=== PATIENT | male | born 1935 | race Hispanic/Latino ===

== ENCOUNTER 2018-07-07 20:40 | Emergency (ER) | payer MEDICARE ==
[2018-07-07 21:16] LABS: Basophils % (Auto) 0.6 % (0.0-1.8); Eosinophils # (Auto) 0.4 K/mm3 (0.0-0.4); Eosinophils % (Auto) 5.2 % (0.0-4.3); Hemoglobin 14.3 gm/dl (11.8-15.2); Lymphocytes # (Auto) 2.5 K/mm3 (1.2-5.4); Lymphocytes % (Auto) 31.8 % (13.4-35.0); Mean Corpuscular HGB Conc 34 % (32-34); Mean Corpuscular Hemoglobin 31 pg (28-32); Mean Corpuscular Volume 92 fl (84-94); Monocytes # (Auto) 0.8 K/mm3 (0.0-0.8); Monocytes % (Auto) 10.4 % (0.0-7.3); Platelet Count 188 K/mm3 (140-440); Red Blood Count 4.55 M/mm3 (3.65-5.03); Red Cell Distribution Width 13.9 % (13.2-15.2)
[2018-07-07 21:34] LABS: BUN/Creatinine Ratio 20; Blood Urea Nitrogen 12 mg/dL (9-20); Calcium 9.1 mg/dL (8.4-10.2); Hemolysis Index 7
--- NOTE | 2018-07-07 22:30 | Emergency Department Report ---
ED General Adult HPI - General Chief complaint: Recheck/Abnormal Lab/Rx Stated complaint: MEDICAL CLEARANCE Time Seen by Provider: 07/07/18 22:21 Source: patient Mode of arrival: Ambulatory Limitations: No Limitations - History of Present Illness Initial comments: Patient is 83 years old male with history of dementia and arthritis. Patient presented to the ER after he received a call from [employer] stating that his potassium is 6.2. Patient stated that he went there for just a routine check. Patient denied any symptoms at this moment. He denied any chest pain, shortness of breath, nausea or vomiting. No weakness numbness or tingling sensation. - Related Data Allergies Allergy/AdvReac Type Severity Reaction Status Date / Time No Known Allergies Allergy Unverified 07/07/18 20:54 ED Review of Systems ROS: Stated complaint: MEDICAL CLEARANCE Other details as noted in HPI Comment: All other systems reviewed and negative Constitutional: denies: chills, fever Respiratory: denies: cough, orthopnea, shortness of breath, SOB with exertion Cardiovascular: denies: chest pain, palpitations, dyspnea on exertion Gastrointestinal: denies: abdominal pain, nausea, vomiting, diarrhea, constipation, hematemesis, hematochezia Musculoskeletal: denies: back pain Neurological: denies: headache, weakness, numbness, paresthesias, confusion ED Past Medical Hx - Past Medical History Hx Arthritis: Yes Hx Dementia: Yes - Surgical History Past Surgical History?: No - Social History Smoking Status: Never Smoker Substance Use Type: None ED Physical Exam - General Limitations: No Limitations General appearance: alert, in no apparent distress - Head Head exam: Present: atraumatic, normocephalic, normal inspection - Eye Eye exam: Present: normal appearance, PERRL - ENT ENT exam: Present: normal exam, normal orophraynx, mucous membranes moist - Neck Neck exam: Present: normal inspection, full ROM. Absent: tenderness, meningismus, lymphadenopathy, thyromegaly - Respiratory Respiratory exam: Present: normal lung sounds bilaterally. Absent: respiratory distress, wheezes, rales, rhonchi, stridor, chest wall tenderness, accessory muscle use, decreased breath sounds, prolonged expiratory - Cardiovascular Cardiovascular Exam: Present: regular rate, normal rhythm, normal heart sounds - GI/Abdominal GI/Abdominal exam: Present: soft, normal bowel sounds. Absent: distended, tenderness, guarding, rebound, rigid, organomegaly, mass, bruit, pulsatile mass , hernia - Extremities Exam Extremities exam: Present: normal inspection, full ROM, normal capillary refill. Absent: calf tenderness - Back Exam Back exam: Present: normal inspection, full ROM. Absent: tenderness, CVA tenderness (R), CVA tenderness (L), muscle spasm, paraspinal tenderness, vertebral tenderness, rash noted - Neurological Exam Neurological exam: Present: alert, oriented X3, CN II-XII intact, normal gait, reflexes normal - Psychiatric Psychiatric exam: Present: normal mood - Skin Skin exam: Present: warm, intact, normal color ED Course Vital Signs 07/07/18 20:49 Temperature 97.5 F L Pulse Rate 55 L Respiratory 18 Rate Blood Pressure 122/71 O2 Sat by Pulse 99 Oximetry ED Medical Decision Making - Lab Data Result diagrams: 07/07/18 21:07 07/07/18 21:07 - EKG Data -: EKG Interpreted by Vt EKG shows normal: sinus rhythm Rate: bradycardia - EKG Data Interpretation: no acute changes - Medical Decision Making Patient is completely asymptomatic. Potassium level is 4.1 with a creatinine of 0.6 in B Inderjit if 12. I believe this is most likely a false hyperkalemia secondary to hemolysis. Patient will be discharged home to follow up with his primary care physician in the next 2-3 days. Critical care attestation.: If time is entered above; I have spent that time in minutes in the direct care of this critically ill patient, excluding procedure time. ED Disposition Clinical Impression: Abnormal laboratory test result Disposition: DC-01 TO HOME OR SELFCARE Is pt being admited?: No Condition: Stable Instructions: Normal Exam (ED) Additional Instructions: Follow-up with your Primary care physician in the next 2-3 days. Return to the ER if you have any new symptoms.
[2018-07-07 22:32] VITALS: BP 150/59
== END 2018-07-07 22:38 | disposition home or self-care (01) ==
LOC: ED 20:40
DX: R79.9 Abnormal finding of blood chemistry, unspecified (principal); M19.90 Unspecified osteoarthritis, unspecified site; F03.90 Unspecified dementia, unspecified severity, without behavioral disturbance, psychotic disturbance, mood disturbance, and anxiety
CPT/HCPCS: 36415; 80048; 85025; 93005; 93010; 99283

== ENCOUNTER 2021-03-16 17:50 | Inpatient (IN) | payer OTHER, MEDICARE ==
[2021-03-16] MEDS ORDERED: ASPIRIN 325 MG TAB PO ONE (18:04)
[2021-03-16 18:49] LABS: Hematocrit 39.4 % (35.5-45.6); Hemoglobin 13.3 gm/dl (11.8-15.2); Mean Corpuscular HGB Conc 34 % (32-34); Mean Corpuscular Volume 91 fl (84-94); Platelet Count 143 K/mm3 (140-440); Red Blood Count 4.35 M/mm3 (3.65-5.03); Red Cell Distribution Width 13.8 % (13.2-15.2)
[2021-03-16 19:12] LABS: Alanine Aminotransferase 22 units/L (7-56); Albumin 3.7 g/dL (3.9-5); Blood Urea Nitrogen 14 mg/dL (9-20); Calcium 8.4 mg/dL (8.4-10.2); Hemolysis Index 12
[2021-03-16 19:13] LABS: BUN/Creatinine Ratio 23
--- NOTE | 2021-03-16 19:14 | XRay Report ---
CHEST 1 VIEW 1829 INDICATION / CLINICAL INFORMATION: Shortness of breath COMPARISON: None available. FINDINGS: SUPPORT DEVICES: None HEART / MEDIASTINUM: No significant abnormality. LUNGS / PLEURA: Chronic changes are seen. Calcified left hilar node and a calcified granuloma are not ed. Small right calcified granuloma is also seen. No obvious acute infiltrates are noted. No pneumoth orax. ADDITIONAL FINDINGS: No significant additional findings. IMPRESSION: No significant acute abnormality Signer Name: Gerry Zhou MD Signed: 03/16/2021 7:10 PM Workstation Name: [email or web address]
[2021-03-16 19:28] LABS: Total Cells Counted 100
[2021-03-16 19:29] LABS: RBC Morphology Normal
--- NOTE | 2021-03-16 20:06 | Emergency Department Report ---
Blank Doc - Documentation Documentation: 85-year-old male that presents with SOB with generalized weakness. Daughter is present and stated had multiple falls. Unusure of LOC. 1- This initial assessment/diagnostic orders/clinical plan/ treatment(s) is/are subject to change based on pt's health status, clinical progression and re- assessment by fellow clinical providers in the ED. Further treatment and workup at subsequent clinical provers discretion. Patient/guardians urged not to elope from ED as their condition may be serious if not clinically assessed and managed. 2-cardiac workup 3-CT head/xray imagins
--- NOTE | 2021-03-16 20:51 | Cat Scan Report ---
CT head/brain wo con INDICATION / CLINICAL INFORMATION: 85 years Male; headache with falls. TECHNIQUE: Routine CT head without contrast. All CT scans at this location are performed using CT dos e reduction for ALARA by means of automated exposure control. COMPARISON: None. FINDINGS: BRAIN / INTRACRANIAL CONTENTS: No acute hemorrhage, mass effect, midline shift, hydrocephalus, or acu te, large territorial infarct. Moderate cerebral and mild cerebellar atrophy. Moderate degree of hippocampal atrophy suggested bilat erally. There are mild areas of decreased attenuation in the white matter of the cerebral hemispheres. These are nonspecific findings and may be related to microangiopathy (hypertension, diabetes, atheroscleros is), given the patient's age. It might be difficult to evaluate for small areas of ischemia without d iffusion imaging by MRI. CRANIOCERVICAL JUNCTION: No significant abnormality. ORBITS: No significant abnormality of visualized orbits. SINUSES / MASTOIDS: Mild to moderate mucosal thickening in the ethmoids. There is also mild mucosal t hickening in the mastoids. ADDITIONAL FINDINGS: Atherosclerotic disease is seen in the anterior and posterior circulation. IMPRESSION: 1. No focal mass, hemorrhage, hydrocephalus, or acute, large territorial infarct. Signer Name: Nishant Escudero MD, III Signed: 03/16/2021 8:46 PM Workstation Name: [id number]
--- NOTE | 2021-03-16 21:00 | Cat Scan Report ---
. CT cervical spine wo con INDICATION / CLINICAL INFORMATION: 85 years Male; headache with falls. TECHNIQUE: Axial CT images of the cervical spine were obtained. Sagittal and coronal reformatted images were pr oduced. All CT scans at this location are performed using CT dose reduction for ALARA by means of aut omated exposure control. COMPARISON: None available. FINDINGS: POST-SURGICAL CHANGES: Interbody fusion suggested at C5-6 and C6-7. ALIGNMENT: Straightening of the cervical spine noted, which may be related to patient positioning. VERTEBRAE: No signs of fracture. Vertebral bodies are grossly normal in height throughout. There is osseous foraminal narrowing on the right at C3-4, C4-5, and C7-T1 related to facet and uncin ate hypertrophy. Similar findings seen on the left at C3-4, C4-5, C7-T1. Overall, most marked finding s are at C4-5 bilaterally and C3-4 on the left. There is also vacuum phenomenon the foraminal region bilaterally at C7-T1-left greater than right, wh ich may be related to some component of disc disease. INTRAVERTEBRAL DISCS: Disc space narrowing seen at C4-5 and C7-T1. Posterior ligamentum flavum hypert rophy seen at these levels, greater at C3-4. Borderline cord impingement suggested at C3-4 and mild c anal narrowing suggested at C4-5. MRI may be helpful for further evaluation, if clinically warranted. Marked facet hypertrophy is seen on the left at C3-4. Moderate facet hypertrophy seen bilaterally at C4-5. PARASPINAL SOFT TISSUES: No significant abnormality. ADDITIONAL FINDINGS: Scarring type changes seen in the right lung apex. Mild to moderate mucosal thickening seen in the mastoids-left greater than right. IMPRESSION: 1. No signs of acute bony trauma to the cervical spine. 2. Significant canal narrowing seen at C3-4 and C4-5. Signer Name: Nishant Escudero MD, III Signed: 03/16/2021 8:56 PM Workstation Name: [id number]
--- NOTE | 2021-03-16 21:05 | Emergency Department Report ---
- General Chief complaint: Weakness Stated complaint: SOB,WEAK, POSS UTI,BLOOD ISSUES PUI?: No Time Seen by Provider: 03/16/21 19:04 Source: family Mode of arrival: Wheelchair Limitations: Physical Limitation - History of Present Illness Initial comments: Patient is an 85-year-old male that presents emergency room with complaints of weakness, confusion, shortness of breath, dysuria, falls. is at bedside. Patient is confused. states he is not sure what his baseline is but he does have a history of dementia. states that the patient has fallen 2 times in the last 2 weeks. states that he fell a week and a half ago and hit his head in the kitchen. Patient also fell on Saturday fell backwards and hit the back of his head. states he has a bruise but no laceration or bleeding. states she did not lose consciousness. states he is having difficulties walking and standing from a sitting position because of generalized weakness. states that the symptoms are worsening. states that he gets out of breath easily when he is exerting himself. states that his confusion is worse. Patient is currently alert and oriented x1. Patient is disoriented to place and time. Patient is oriented to person only. Patient denies pain. denies recent travel. denies recent international travel. denies exposure to the novel coronavirus. denies sick contacts. denies fever and chills. denies cough. denies diarrhea. denies coming in contact with anybody with symptoms of the novel coronavirus. Complaint: generalized weakness -: Sudden, week(s) Location: generalized Severity: severe Consistency: constant Improves with: rest Worsens with: movement, exertion Associated Symptoms: confusion, dysuria. denies: dark stools, diaphoresis, easy bruising, fever/chills - Related Data Allergies Allergy/AdvReac Type Severity Reaction Status Date / Time No Known Allergies Allergy Unverified 07/07/18 20:54 ED Review of Systems ROS: Stated complaint: SOB,WEAK, POSS UTI,BLOOD ISSUES Other details as noted in HPI Comment: Unobtainable due to pts medical conditions ED Past Medical Hx - Past Medical History Previous Medical History?: Yes Hx Arthritis: Yes Hx Dementia: Yes - Surgical History Past Surgical History?: No - Family History Family history: no significant - Social History Smoking Status: Never Smoker Substance Use Type: None ED Physical Exam - General Limitations: Altered Mental Status, Physical Limitation General appearance: alert, in no apparent distress - Head Head exam: Present: atraumatic, normocephalic - Eye Eye exam: Present: normal appearance, PERRL Pupils: Present: normal accommodation - ENT ENT exam: Present: mucous membranes dry - Neck Neck exam: Present: normal inspection - Respiratory Respiratory exam: Present: normal lung sounds bilaterally. Absent: respiratory distress, wheezes, rales - Cardiovascular Cardiovascular Exam: Present: regular rate, normal rhythm. Absent: systolic murmur, diastolic murmur, rubs, gallop - GI/Abdominal GI/Abdominal exam: Present: soft, normal bowel sounds - Rectal Rectal exam: Present: deferred - Extremities Exam Extremities exam: Present: normal inspection - Back Exam Back exam: Present: normal inspection - Neurological Exam Neurological exam: Present: alert, altered - Psychiatric Psychiatric exam: Present: normal affect, normal mood - Skin Skin exam: Present: warm, dry, intact, normal color. Absent: rash - Assessment Assessment Interval: Baseline - Level of Consciousness 1a. Level of Consciousness: alert/keenly responsive - LOC Questions 1b. LOC Questions: answers 1 question correctly - LOC Command 1c. LOC Commands: performs 1 task correctly - Best Gaze 2. Best Gaze: normal - Visual 3. Visual: no visual loss - Facial Palsy 4. Facial Palsy: normal symmetrical movement - Motor Arm 5a. Motor Arm Left: no drift 5b. Motor Arm Right: no drift - Motor Leg 6a. Motor Leg Left: no drift 6b. Motor Leg Right: no drift - Limb Ataxia 7. Limb Ataxia: absent - Sensory 8. Sensory: normal - Best Language 9. Best Language: no aphasia - Dysarthria 10. Dysarthria: normal - Extinction and Inattention 11. Extinction/Inattention: no abnormality - Scoring Total Score: 2 Stroke Severity: Minor Stroke ED Course Vital Signs 03/16/21 03/16/21 03/16/21 17:54 20:36 20:37 Temperature 98.4 F Pulse Rate 60 65 63 Respiratory 18 23 Rate Blood Pressure Blood Pressure 134/70 [Right] O2 Sat by Pulse 97 99 98 Oximetry 03/16/21 03/16/21 03/16/21 20:38 20:39 20:41 Temperature Pulse Rate 66 63 63 Respiratory 24 20 19 Rate Blood Pressure 143/80 143/80 143/80 Blood Pressure [Right] O2 Sat by Pulse 99 98 98 Oximetry 03/16/21 03/16/21 03/16/21 20:43 20:45 20:47 Temperature Pulse Rate 65 63 60 Respiratory 22 22 17 Rate Blood Pressure 143/80 143/80 143/80 Blood Pressure [Right] O2 Sat by Pulse 98 98 98 Oximetry 03/16/21 03/16/21 03/16/21 20:49 20:51 20:53 Temperature Pulse Rate 64 86 73 Respiratory 19 15 21 Rate Blood Pressure 143/80 143/80 143/80 Blood Pressure [Right] O2 Sat by Pulse 98 98 98 Oximetry 03/16/21 03/16/21 03/16/21 20:55 20:57 20:59 Temperature Pulse Rate 74 76 66 Respiratory 14 13 17 Rate Blood Pressure 143/80 143/80 143/80 Blood Pressure [Right] O2 Sat by Pulse 97 98 99 Oximetry 03/16/21 03/16/21 03/16/21 21:01 21:03 21:05 Temperature Pulse Rate 64 65 62 Respiratory 21 11 L 14 Rate Blood Pressure 143/80 142/71 142/71 Blood Pressure [Right] O2 Sat by Pulse 85 97 98 Oximetry 03/16/21 03/16/21 03/16/21 21:07 21:23 21:25 Temperature Pulse Rate 64 65 72 Respiratory 9 L 17 17 Rate Blood Pressure 142/71 142/71 142/71 Blood Pressure [Right] O2 Sat by Pulse 98 98 96 Oximetry 03/16/21 03/16/21 03/16/21 21:27 21:29 21:31 Temperature Pulse Rate 64 56 L 57 L Respiratory 12 21 21 Rate Blood Pressure 142/71 142/71 143/62 Blood Pressure [Right] O2 Sat by Pulse 97 97 98 Oximetry 03/16/21 03/16/21 03/16/21 21:33 21:35 21:37 Temperature Pulse Rate 55 L 52 L 53 L Respiratory 24 23 22 Rate Blood Pressure 143/62 143/62 143/62 Blood Pressure [Right] O2 Sat by Pulse 98 99 98 Oximetry 03/16/21 03/16/21 03/16/21 21:39 21:41 21:43 Temperature Pulse Rate 56 L 57 L 53 L Respiratory 23 23 21 Rate Blood Pressure 143/62 143/62 143/62 Blood Pressure [Right] O2 Sat by Pulse 98 97 98 Oximetry 03/16/21 03/16/21 03/16/21 21:45 21:47 21:49 Temperature Pulse Rate 54 L 57 L 55 L Respiratory 22 22 20 Rate Blood Pressure 143/62 143/62 143/62 Blood Pressure [Right] O2 Sat by Pulse 98 98 99 Oximetry 03/16/21 03/16/21 03/16/21 21:51 21:53 21:55 Temperature Pulse Rate 54 L 55 L 55 L Respiratory 22 22 23 Rate Blood Pressure 143/62 143/62 143/62 Blood Pressure [Right] O2 Sat by Pulse 98 98 96 Oximetry 03/16/21 03/16/21 03/16/21 21:57 21:59 22:01 Temperature Pulse Rate 55 L 55 L 55 L Respiratory 17 23 21 Rate Blood Pressure 143/62 143/62 131/57 Blood Pressure [Right] O2 Sat by Pulse 98 99 99 Oximetry 03/16/21 03/16/21 03/16/21 22:03 22:05 22:07 Temperature Pulse Rate 55 L 54 L 53 L Respiratory 17 20 20 Rate Blood Pressure 131/57 131/57 131/57 Blood Pressure [Right] O2 Sat by Pulse 98 98 98 Oximetry 03/16/21 03/16/21 03/16/21 22:09 22:11 22:13 Temperature Pulse Rate 54 L 55 L 55 L Respiratory 20 25 H 26 H Rate Blood Pressure 131/57 131/57 131/57 Blood Pressure [Right] O2 Sat by Pulse 99 98 98 Oximetry 03/16/21 03/16/21 03/16/21 22:15 22:17 22:19 Temperature Pulse Rate 54 L 53 L 53 L Respiratory 22 23 20 Rate Blood Pressure 131/57 131/57 131/57 Blood Pressure [Right] O2 Sat by Pulse 98 98 98 Oximetry 03/16/21 03/16/21 03/16/21 22:21 22:23 22:25 Temperature Pulse Rate 54 L 54 L 54 L Respiratory 20 22 18 Rate Blood Pressure 131/57 131/57 131/57 Blood Pressure [Right] O2 Sat by Pulse 98 98 99 Oximetry 03/16/21 03/16/21 03/16/21 22:27 22:29 22:30 Temperature Pulse Rate 55 L 54 L 53 L Respiratory 15 18 20 Rate Blood Pressure 131/57 131/57 138/69 Blood Pressure [Right] O2 Sat by Pulse 98 98 99 Oximetry 03/16/21 03/16/21 03/16/21 22:31 22:33 22:35 Temperature Pulse Rate 53 L 53 L 54 L Respiratory 19 20 19 Rate Blood Pressure 138/69 138/69 138/69 Blood Pressure [Right] O2 Sat by Pulse 99 98 98 Oximetry 03/16/21 03/16/21 03/16/21 22:37 22:39 22:41 Temperature Pulse Rate 54 L 54 L 68 Respiratory 17 23 16 Rate Blood Pressure 138/69 138/69 138/69 Blood Pressure [Right] O2 Sat by Pulse 99 99 98 Oximetry 03/16/21 03/16/21 03/16/21 22:43 22:45 22:47 Temperature Pulse Rate 68 Respiratory 11 L Rate Blood Pressure 138/69 138/69 138/69 Blood Pressure [Right] O2 Sat by Pulse 96 98 98 Oximetry 03/16/21 03/16/21 03/16/21 22:49 22:51 22:53 Temperature Pulse Rate Respiratory Rate Blood Pressure 138/69 138/69 138/69 Blood Pressure [Right] O2 Sat by Pulse 97 97 99 Oximetry 03/16/21 03/16/21 03/16/21 22:55 22:57 22:58 Temperature Pulse Rate Respiratory Rate Blood Pressure 138/69 138/69 138/69 Blood Pressure [Right] O2 Sat by Pulse 97 97 97 Oximetry - Reevaluation(s) Reevaluation #1: I discussed all results with patient and . I discussed plan of care with patient and . Patient and agrees with plan of care and admission. Patient to be admitted to the hospitalist service. 03/16/21 22:16 - Consultations Consultation #1: Hospitalist consulted for admission. Hospitalist to admit patient. 03/16/21 22:17 ED Medical Decision Making - Lab Data Result diagrams: 03/16/21 18:39 03/16/21 18:39 - EKG Data -: EKG Interpreted by Me EKG shows normal: sinus rhythm, axis, intervals, QRS complexes, ST-T waves Rate: normal - Radiology Data Radiology results: report reviewed, image reviewed interpreted by me: Chest x-ray: No pneumonia, no pneumothorax, no foreign body, no osseous findings, no acute findings CT head/brain wo con INDICATION / CLINICAL INFORMATION: 85 years Male; headache with falls. TECHNIQUE: Routine CT head without contrast. All CT scans at this location are performed using CT dose reduction for ALARA by means of automated exposure control. COMPARISON: None. FINDINGS: BRAIN / INTRACRANIAL CONTENTS: No acute hemorrhage, mass effect, midline shift, hydrocephalus, or acute, large territorial infarct. Moderate cerebral and mild cerebellar atrophy. Moderate degree of hippocampal atrophy suggested bilaterally. There are mild areas of decreased attenuation in the white matter of the ce rebral hemispheres. These are nonspecific findings and may be related to microangiopathy (hypertens ion, diabetes, atherosclerosis), given the patient's age. It might be difficult to evaluate for small areas of ischemia without diffusion imaging by MRI. CRANIOCERVICAL JUNCTION: No significant abnormality. ORBITS: No significant abnormality of visualized orbits. SINUSES / MASTOIDS: Mild to moderate mucosal thickening in the ethmoids. There is also mild mucosal thickening in the mastoids. ADDITIONAL FINDINGS: Atherosclerotic disease is seen in the anterior and posterior circulation. IMPRESSION: 1. No focal mass, hemorrhage, hydrocephalus, or acute, large territorial infarct. CHEST 1 VIEW 1829 INDICATION / CLINICAL INFORMATION: Shortness of breath COMPARISON: None available. FINDINGS: SUPPORT DEVICES: None HEART / MEDIASTINUM: No significant abnormality. LUNGS / PLEURA: Chronic changes are seen. Calcified left hilar node and a calcified granuloma are noted. Small right calcified granuloma is also seen. No obvious acute infiltrates are noted. No pneumothorax. ADDITIONAL FINDINGS: No significant additional findings. IMPRESSION: No significant acute abnormality CT cervical spine wo con INDICATION / CLINICAL INFORMATION: 85 years Male; headache with falls. TECHNIQUE: Axial CT images of the cervical spine were obtained. Sagittal and coronal reformatted images were produced. All CT scans at this location are performed using CT dose reduction for ALARA by means of automated exposure control. COMPARISON: None available. FINDINGS: POST-SURGICAL CHANGES: Interbody fusion suggested at C5-6 and C6-7. ALIGNMENT: Straightening of the cervical spine noted, which may be related to patient positioning. VERTEBRAE: No signs of fracture. Vertebral bodies are grossly normal in height throughout. There is osseous foraminal narrowing on the right at C3-4, C4-5, and C7-T1 related to facet and uncinate hypertrophy. Similar findings seen on the left at C3-4, C4-5, C7-T1. Overall, most marked findings are at C4-5 bilaterally and C3-4 on the left. There is also vacuum phenomenon the foraminal region bilaterally at C7-T1-left greater than right, which may be related to some component of disc disease. INTRAVERTEBRAL DISCS: Disc space narrowing seen at C4-5 and C7-T1. Posterior ligamentum flavum hypertrophy seen at these levels, greater at C3-4. Borderline cord impingement suggested at C3-4 and mild canal narrowing suggested at C4-5. MRI may be helpful for further evaluation, if clinically warranted. Marked facet hypertrophy is seen on the left at C3-4. Moderate facet hypertrophy seen bilaterally at C4-5. PARASPINAL SOFT TISSUES: No significant abnormality. ADDITIONAL FINDINGS: Scarring type changes seen in the right lung apex. Mild to moderate mucosal thickening seen in the mastoids-left greater than right. IMPRESSION: 1. No signs of acute bony trauma to the cervical spine. 2. Significant canal narrowing seen at C3-4 and C4-5. FINDINGS: VERTEBRAE: Mild compression fractures noted of L4 and L5. Mild degenerative retrolisthesis noted at L3-L4 and L2-L3. DISC SPACES / FACET JOINTS:Advanced lumbar spondylosis with mild right cord scoliotic curvature of the lumbar spine. Findings are most advanced at L4-L5. PARASPINAL SOFT TISSUES:No significant abnormality. ADDITIONAL FINDINGS: 2 calcified granuloma noted in the left lung base. - Medical Decision Making Patient is a 85-year-old male that presents emergency room with complaints of weakness, multiple falls dysuria and urinary frequency and fatigue. Patient had labs done which were essentially unremarkable. Patient had multiple x-rays done. Patient's lumbar x-ray shows compression fractures. Patient's chest x- ray was negative for acute findings. I personally reviewed the chest x-ray. Patient had a head CT and a C-spine CT and there were negative for acute findings. Patient admitted to the hospital service for further evaluation treatment. Critical care time documented due to the multiple reassessments, prolonged time at the bedside, interpretation of diagnostics and labs. - Differential Diagnosis TIA, confusion, falls, weakness, altered mental status, UTI Critical Care Time: Yes Critical care time in (mins) excluding proc time.: 35 Critical care attestation.: If time is entered above; I have spent that time in minutes in the direct care of this critically ill patient, excluding procedure time. Critical Care Time: 35 minutes ED Disposition Clinical Impression: Weakness, Acute confusion, SOB (shortness of breath), KAUR (dyspnea on exertion), Increased urinary frequency, Hyponatremia Altered mental state Qualifiers: Altered mental status type: unspecified Qualified Code(s): R41.82 - Altered mental status, unspecified Lumbar compression fracture Qualifiers: Encounter type: initial encounter Lumbar vertebra fracture level: unspecified lumbar vertebra Qualified Code(s): S32.000A - Wedge compression fracture of unspecified lumbar vertebra, initial encounter for closed fracture Disposition: DC-09 OP ADMIT IP TO THIS HOSP Is pt being admited?: Yes Does the pt Need Aspirin: No Condition: Critical Time of Disposition: 22:15
[2021-03-16 21:32] LABS: Bilirubin,Urine NEG (Negative); Blood,Urine NEG (Negative); Color,Urine Yellow (Yellow); Protein,Urine <15 mg/dL mg/dL (Negative)
--- NOTE | 2021-03-16 22:06 | XRay Report ---
LUMBAR SPINE 3 VIEWS INDICATION / CLINICAL INFORMATION: fall. COMPARISON: None available. FINDINGS: VERTEBRAE: Mild compression fractures noted of L4 and L5. Mild degenerative retrolisthesis noted at L 3-L4 and L2-L3. DISC SPACES / FACET JOINTS:Advanced lumbar spondylosis with mild right cord scoliotic curvature of th e lumbar spine. Findings are most advanced at L4-L5. PARASPINAL SOFT TISSUES:No significant abnormality. ADDITIONAL FINDINGS: 2 calcified granuloma noted in the left lung base. Signer Name: Paul Gibson MD Signed: 03/16/2021 10:02 PM Workstation Name: [id number]
[2021-03-16] MEDS ORDERED: SODIUM CHLORIDE 0.9% 1000 ML 1,000 ML IV ONE (22:16)
[2021-03-16] MEDS ORDERED: MORPHINE 2 MG/1 ML INJ IV PRN (22:39)
[2021-03-16] MEDS ORDERED: ACETAMINOPHEN 325 MG TAB PO PRN (22:39)
[2021-03-16] MEDS ORDERED: ONDANSETRON 4 MG/2 ML INJ IV PRN (22:39)
[2021-03-16] MEDS ORDERED: MAGNESIUM HYDROXIDE (MOM) ORAL LIQD UDC PO PRN (22:39)
--- NOTE | 2021-03-16 22:48 | History and Physical Report ---
History of Present Illness Date of examination: 03/16/21 Date of admission: 03/16/21 22:16 Chief complaint: Generalized Weakness Falls History of present illness: 85-year-old white male with known history of dementia and arthritis brought into the emergency room today accompanied by complaining of weakness, shortness of breath confusion and frequent falls today. Most of the history was given by the was by the bedside. Patient has had 2 falls in the last 2 weeks. According to , patient fell few days ago and hit the back of his head but there was no loss of consciousness and no lacerations except some bruises on the scalp. Patient has been having difficulty ambulating and standing from a sitting position because of the generalized weakness. states patient follows up in the [place] [facility] at the [facility] and has home health aides coming to their house. Patient is only alert and oriented x1 and unable to give any history. will rather continue to require help at home with patient's care and will not require any placement. There has been no history of sick contacts or recent travel. No history of contact with anyone with COVID-19. Work-up in the emergency room today reveals hyponatremia of 130. Patient being admitted for generalized weakness, fall and hyponatremia. Past History Past Medical History: arthritis, other (Dementia) Past Surgical History: No surgical history Social history: lives with family Family history: no significant family history Medications and Allergies Allergies Allergy/AdvReac Type Severity Reaction Status Date / Time No Known Allergies Allergy Unverified 07/07/18 20:54 Active Meds: Active Medications Acetaminophen (Acetaminophen 325 Mg Tab) 650 mg PO Q4H PRN PRN Reason: Pain MILD(1-3)/Fever >100.5/KEARNEY Sodium Chloride (Nacl 0.9% 1000 Ml) 1,000 mls @ 999 mls/hr IV BOLUS ONE Stop: 03/16/21 23:16 Ondansetron HCl (Ondansetron 4 Mg/2 Ml Inj) 4 mg IV Q8H PRN PRN Reason: Nausea And Vomiting Sodium Chloride (Sodium Chloride 0.9% 10 Ml Flush Syringe) 10 ml IV BID DON Review of Systems ROS unobtainable: due to mental status Exam - Constitutional Vitals: Temp Pulse Resp BP Pulse Ox 98.4 F 64 9 L 142/71 98 03/16/21 17:54 03/16/21 21:07 03/16/21 21:07 03/16/21 21:07 03/16/21 21:07 General appearance: Present: no acute distress, well-nourished - EENT Eyes: Present: PERRL, EOM intact. Absent: scleral icterus ENT: hearing intact, clear oral mucosa, dentition normal - Neck Neck: Present: supple, normal ROM - Respiratory Respiratory effort: normal Respiratory: bilateral: CTA - Cardiovascular Rhythm: regular Heart Sounds: Present: S1 & S2. Absent: gallop, systolic murmur, diastolic murmur, rub, click - Extremities Extremities: no ischemia, pulses intact, pulses symmetrical, No edema, Full ROM Peripheral Pulses: within normal limits - Abdominal General gastrointestinal: Present: soft, non-tender, non-distended, normal bowel sounds. Absent: mass - Integumentary Integumentary: Present: clear, warm, dry. Absent: rash - Musculoskeletal Musculoskeletal: strength equal bilaterally - Psychiatric Psychiatric: appropriate mood/affect, intact judgment & insight, memory intact, cooperative - Neurologic Neurologic: CNII-XII intact, no focal deficits, moves all extremities HEART Score - HEART Score Troponin: Troponin T < 0.010 ng/mL (0.00-0.029) 03/16/21 20:33 Results - Labs CBC & Chem 7: 03/16/21 18:39 03/16/21 18:39 Labs: Abnormal lab results 03/16/21 03/16/21 Range/Units 18:39 18:39 Monocytes % (Manual) 13.0 H (0.0-7.3) % Monocytes # (Manual) 1.3 H (0.0-0.8) K/mm3 Sodium 130 L (137-145) mmol/L Chloride 95.2 L (98-107) mmol/L Creatinine 0.6 L (0.8-1.3) mg/dL Albumin 3.7 L (3.9-5) g/dL Assessment and Plan - Patient Problems (1) Altered mental state Current Visit: Yes Status: Acute Qualifiers: Altered mental status type: unspecified Qualified Code(s): R41.82 - Altered mental status, unspecified Plan to address problem: Etiology unclear. Will monitor mental status. Work-up so far has been negative. Patient has baseline history of dementia. (2) Hyponatremia Current Visit: Yes Status: Acute Plan to address problem: Patient placed on IV fluid normal saline. Will monitor chemistry. (3) Weakness Current Visit: Yes Status: Acute Plan to address problem: We will request physical therapy consult. We will also place on fall precautions. (4) Dementia Current Visit: Yes Status: Acute Plan to address problem: We will continue patient on his routine home medications. (5) Falls Current Visit: Yes Status: Acute Plan to address problem: We will place on fall precautions. (6) DVT prophylaxis Current Visit: Yes Status: Acute Plan to address problem: Patient placed on subcutaneous heparin. (7) Full code status Current Visit: Yes Status: Acute Plan to address problem: Patient is full code.
[2021-03-17] MEDS: SODIUM CHLORIDE 0.9% 1000 ML 1,000 ML IV SCH ×3 (01:29→21:15)
[2021-03-17] MEDS: HEPARIN 5,000 UNIT/1 ML VIAL SUB-Q SCH ×3 (05:52→21:15)
[2021-03-17 06:03] LABS: Hematocrit 37.7 % (35.5-45.6); Hemoglobin 12.8 gm/dl (11.8-15.2); Mean Corpuscular HGB Conc 34 % (32-34); Mean Corpuscular Volume 91 fl (84-94); Platelet Count 125 K/mm3 (140-440); Red Blood Count 4.14 M/mm3 (3.65-5.03); Red Cell Distribution Width 13.9 % (13.2-15.2)
[2021-03-17 06:07] LABS: INR 1.15 (0.87-1.13)
[2021-03-17 06:20] LABS: Blood Urea Nitrogen 9 mg/dL (9-20); Calcium 7.9 mg/dL (8.4-10.2); Hemolysis Index 6
[2021-03-17 06:21] LABS: BUN/Creatinine Ratio 18
[2021-03-17 06:56] LABS: Total Cells Counted 100
[2021-03-17 06:57] LABS: Platelet Estimate Consistent w Auto; RBC Morphology Normal
--- NOTE | 2021-03-17 13:55 | Electrocardiograph Report ---
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
--- NOTE | 2021-03-17 14:02 | Electrocardiograph Report ---
[facility] Test Date: 2021-03-17 Test Time: 10:27:13 Pat Name: RHEA SHEPHERD Department: Room: A473 1 Gender: M Automotive Painter: MANNIE : 1935 Requested By: DEAN ADAIR III Order Number: [id number] Reading MD: Alon Guo Measurements Intervals [place] Rate: 52 P: 61 PA: 258 QRS: -28 QRSD: 83 T: 56 QT: 443 QTc: 413 Interpretive Statements Sinus bradycardia Prolonged PA interval Nonspecific ST abnormality Compared to ECG 03/16/2021 18:07:02 Electronically Signed On 03-17-2021 14:01:56 EDT by Alon Guo
--- NOTE | 2021-03-17 16:19 | Progress Note ---
Assessment and Plan Assessment and plan: #Acute metabolic encephalopathy Patient baseline is unknown. Patient has a history of dementia No infection seen at this time. Could be as result of slight hyponatremia Continue to monitor #Hyponatremia Trend sodium IV hydration #Weakness Imaging findings of possible spinal stenosis-MRI cervical, thoracic and lumbar ordered Neurosurgery consulted #Dementia Continue memantine #Multiple falls Likely as a result of degenerative changes in the spine PT #DVT prophylaxis-Heparin History Interval history: 85-year-old white male with known history of dementia and arthritis brought into the emergency room today accompanied by complaining of weakness, shortness of breath confusion and frequent falls today. Most of the history was given by the was by the bedside. Patient has had 2 falls in the last 2 weeks. According to , patient fell few days ago and hit the back of his head but there was no loss of consciousness and no lacerations except some bruises on the scalp. Patient has been having difficulty ambulating and standing from a sitting position because of the generalized weakness. states patient follows up in the [place] [facility] at the [facility] and has home health aides coming to their house. Patient is only alert and oriented x1 and unable to give any history. will rather continue to require help at home with patient's care and will not require any placement. There has been no history of sick contacts or recent travel. No history of contact with anyone with COVID-19. Work-up in the emergency room today reveals hyponatremia of 130. Patient being admitted for generalized weakness, fall and hyponatremia. Hospital course 03/17. Patient seen and examined at bedside this morning. Patient having selin kfast. Has no complaints today. Alert and oriented in person only. Reviewed labs. Images also reviewed as well. Neurology consulted for spinal stenosis. MRI cervical, thoracic and lumbar ordered per neurology recommendation. Neck collar also ordered Hospitalist Physical - Physical exam Narrative exam: VITAL SIGNS: Reviewed. GENERAL: Awake HEAD: No signs of head trauma. EYES: Pupils are equal. Extraocular motions intact. MOUTH: Oropharynx is normal. NECK: No adenopathy, no JVD. CHEST: Chest with diminished breath sounds bilaterally. No wheezes, rales, or rhonchi. CARDIAC: normal S1 and S2, without murmurs, gallops, or rubs. ABDOMEN: Soft, non tender and non distended. No rebound or guarding, and no masses palpated. Bowel Sounds normal. MUSCULOSKELETAL: No edema NEUROLOGIC EXAM: Alert oriented in person. Slight weakness of the left lower extremity. SKIN: No obvious lesions - Constitutional Vitals: Temp Pulse Resp BP Pulse Ox 97.4 F L 76 17 135/67 98 03/17/21 09:55 03/17/21 09:55 03/17/21 11:10 03/17/21 09:55 03/17/21 11:10 HEART Score - HEART Score Troponin: Troponin T < 0.010 ng/mL (0.00-0.029) 03/17/21 00:20 Results - Labs CBC & Chem 7: 03/17/21 05:31 03/17/21 05:31 Labs: Laboratory Last Values WBC 7.5 K/mm3 (4.5-11.0) 03/17/21 05:31 RBC 4.14 M/mm3 (3.65-5.03) 03/17/21 05:31 Hgb 12.8 gm/dl (11.8-15.2) 03/17/21 05:31 Hct 37.7 % (35.5-45.6) 03/17/21 05:31 MCV 91 fl (84-94) 03/17/21 05:31 MCH 31 pg (28-32) 03/17/21 05:31 MCHC 34 % (32-34) 03/17/21 05:31 RDW 13.9 % (13.2-15.2) 03/17/21 05:31 Plt Count 125 K/mm3 (140-440) L 03/17/21 05:31 Cavalier % (Auto) Payroll Manager 03/17/21 05:31 Add Manual Diff Complete 03/17/21 05:31 Total Counted 100 03/17/21 05:31 Seg Neuts % (Manual) 63.0 % (40.0-70.0) 03/17/21 05:31 Lymphocytes % (Manual) 25.0 % (13.4-35.0) 03/17/21 05:31 Monocytes % (Manual) 11.0 % (0.0-7.3) H 03/17/21 05:31 Eosinophils % (Manual) 1.0 % (0.0-4.3) 03/17/21 05:31 Nucleated RBC % Not Reportable 03/17/21 05:31 Seg Neutrophils # Man 4.7 K/mm3 (1.8-7.7) 03/17/21 05:31 Band Neutrophils # 0.0 K/mm3 03/17/21 05:31 Lymphocytes # (Manual) 1.9 K/mm3 (1.2-5.4) 03/17/21 05:31 Abs React Lymphs (Man) 0.0 K/mm3 03/17/21 05:31 Monocytes # (Manual) 0.8 K/mm3 (0.0-0.8) 03/17/21 05:31 Eosinophils # (Manual) 0.1 K/mm3 (0.0-0.4) 03/17/21 05:31 Basophils # (Manual) 0.0 K/mm3 (0.0-0.1) 03/17/21 05:31 Metamyelocytes # 0.0 K/mm3 03/17/21 05:31 Myelocytes # 0.0 K/mm3 03/17/21 05:31 Promyelocytes # 0.0 K/mm3 03/17/21 05:31 Blast Cells # 0.0 K/mm3 03/17/21 05:31 WBC Morphology Not Reportable 03/17/21 05:31 Hypersegmented Neuts Not Reportable 03/17/21 05:31 Hyposegmented Neuts Not Reportable 03/17/21 05:31 Hypogranular Neuts Not Reportable 03/17/21 05:31 Smudge Cells Not Reportable 03/17/21 05:31 Toxic Granulation Not Reportable 03/17/21 05:31 Toxic Vacuolation Not Reportable 03/17/21 05:31 Dohle Bodies Not Reportable 03/17/21 05:31 Pelger-Huet Anomaly Not Reportable 03/17/21 05:31 Christiana Rods Not Reportable 03/17/21 05:31 Platelet Estimate Consistent w auto 03/17/21 05:31 Clumped Platelets Not Reportable 03/17/21 05:31 Plt Clumps, EDTA Not Reportable 03/17/21 05:31 Large Platelets Not Reportable 03/17/21 05:31 Giant Platelets Not Reportable 03/17/21 05:31 Platelet Satelliting Not Reportable 03/17/21 05:31 Plt Morphology Comment Not Reportable 03/17/21 05:31 RBC Morphology Normal 03/17/21 05:31 Dimorphic RBCs Not Reportable 03/17/21 05:31 Polychromasia Not Reportable 03/17/21 05:31 Hypochromasia Not Reportable 03/17/21 05:31 Poikilocytosis Not Reportable 03/17/21 05:31 Anisocytosis Not Reportable 03/17/21 05:31 Microcytosis Not Reportable 03/17/21 05:31 Macrocytosis Not Reportable 03/17/21 05:31 Spherocytes Not Reportable 03/17/21 05:31 Pappenheimer Bodies Not Reportable 03/17/21 05:31 Sickle Cells Not Reportable 03/17/21 05:31 Target Cells Not Reportable 03/17/21 05:31 Tear Drop Cells Not Reportable 03/17/21 05:31 Ovalocytes Not Reportable 03/17/21 05:31 Helmet Cells Not Reportable 03/17/21 05:31 Goodwin-Collyer Bodies Not Reportable 03/17/21 05:31 [place] Rings Not Reportable 03/17/21 05:31 Ashley Cells Not Reportable 03/17/21 05:31 Bite Cells Not Reportable 03/17/21 05:31 Crenated Cell Not Reportable 03/17/21 05:31 Elliptocytes Not Reportable 03/17/21 05:31 Acanthocytes (Spur) Not Reportable 03/17/21 05:31 Rouleaux Not Reportable 03/17/21 05:31 Hemoglobin C Crystals Not Reportable 03/17/21 05:31 Schistocytes Not Reportable 03/17/21 05:31 Malaria parasites Not Reportable 03/17/21 05:31 Burt Bodies Not Reportable 03/17/21 05:31 Hem Pathologist Commnt No 03/17/21 05:31 PT 14.6 Sec. (12.2-14.9) 03/17/21 05:31 INR 1.15 (0.87-1.13) H 03/17/21 05:31 Sodium 132 mmol/L (137-145) L 03/17/21 05:31 Potassium 3.9 mmol/L (3.6-5.0) 03/17/21 05:31 Chloride 98.4 mmol/L (98-107) 03/17/21 05:31 Carbon Dioxide 24 mmol/L (22-30) 03/17/21 05:31 Anion Gap 14 mmol/L 03/17/21 05:31 BUN 9 mg/dL (9-20) 03/17/21 05:31 Creatinine 0.5 mg/dL (0.8-1.3) L 03/17/21 05:31 Estimated GFR > 60 ml/min 03/17/21 05:31 BUN/Creatinine Ratio 18 % 03/17/21 05:31 Glucose 89 mg/dL (75-100) 03/17/21 05:31 Calcium 7.9 mg/dL (8.4-10.2) L 03/17/21 05:31 Total Bilirubin 0.70 mg/dL (0.1-1.2) 03/16/21 18:39 AST 19 units/L (5-40) 03/16/21 18:39 ALT 22 units/L (7-56) 03/16/21 18:39 Alkaline Phosphatase 81 units/L (35-129) 03/16/21 18:39 Troponin T < 0.010 ng/mL (0.00-0.029) 03/17/21 00:20 Total Protein 6.3 g/dL (6.3-8.2) 03/16/21 18:39 Albumin 3.7 g/dL (3.9-5) L 03/16/21 18:39 Albumin/Globulin Ratio 1.4 % 03/16/21 18:39 Urine Color Yellow (Yellow) 03/16/21 21:06 Urine Turbidity Clear (Clear) 03/16/21 21:06 Urine pH 6.0 (5.0-7.0) 03/16/21 21:06 Ur Specific [place] 1.014 (1.003-1.030) 03/16/21 21:06 Urine Protein <15 mg/dl mg/dL (Negative) 03/16/21 21:06 Urine Glucose (UA) Neg mg/dL (Negative) 03/16/21 21:06 Urine Ketones Neg mg/dL (Negative) 03/16/21 21:06 Urine Blood Neg (Negative) 03/16/21 21:06 Urine Nitrite Neg (Negative) 03/16/21 21:06 Urine Bilirubin Neg (Negative) 03/16/21 21:06 Urine Urobilinogen 2.0 mg/dL (<2.0) 03/16/21 21:06 Ur Leukocyte Esterase Neg (Negative) 03/16/21 21:06 Urine WBC (Auto) 5.0 /HPF (0.0-6.0) 03/16/21 21:06 Urine RBC (Auto) 1.0 /HPF (0.0-6.0) 03/16/21 21:06 U Epithel Cells (Auto) < 1.0 /HPF (0-13.0) 03/16/21 21:06 Taylor/IV: Voiding Method Condom Catheter Active Medications - Current Medications Current Medications: Generic Name Dose Route Start Last Admin Trade Name Freq PRN Reason Stop Dose Admin Acetaminophen 650 mg 03/16/21 22:39 Acetaminophen 325 Mg Tab PO Q4H PRN Pain MILD(1-3)/Fever >100.5/KEARNEY Heparin Sodium (Porcine) 5,000 unit 03/17/21 06:00 03/17/21 14:40 Heparin 5,000 Unit/1 Ml Vial SUB-Q 5,000 unit Q8HR DON Administration Sodium Chloride 1,000 mls @ 125 mls/hr 03/16/21 22:45 03/17/21 09:52 Nacl 0.9% 1000 Ml IV 125 mls/hr DIRECT DON Administration Magnesium Hydroxide 30 ml 03/16/21 22:39 Magnesium Hydroxide (Mom) Oral Liqd Udc PO Q4H PRN Constipation Morphine Sulfate 2 mg 03/16/21 22:39 Morphine 2 Mg/1 Ml Inj IV Q4H PRN Pain, Moderate (4-6) Ondansetron HCl 4 mg 03/16/21 22:39 Ondansetron 4 Mg/2 Ml Inj IV Q8H PRN Nausea And Vomiting Sodium Chloride 10 ml 03/17/21 10:00 03/17/21 09:52 Sodium Chloride 0.9% 10 Ml Flush Syringe IV 10 ml BID DON Administration Sodium Chloride 10 ml 03/16/21 22:39 Sodium Chloride 0.9% 10 Ml Flush Syringe IV PRN PRN LINE FLUSH Nutrition/Malnutrition Assess - Dietary Evaluation Nutrition/Malnutrition Findings: Nutrition Notes Start: 03/17/21 10:11 Freq: Status: Active Protocol: Document 03/17/21 10:11 NICOLA (Rec: 03/17/21 10:13 NICOLA [id number]) Nutrition Notes Need for Assessment generated from: MD Order,Low BMI Initial or Follow up Brief Note Other Pertinent Diagnosis dementia, AMS, weakness, falls Current Diet Regular Subjective/Other Information MD order for diet education. Screen for low BMI. Pt is very confused and eating breakfast at time of visit. Pt ate about 75% of breakfast and stated he was not done eating. No signs of muscle or fast loss. Not appropriate for diet education. Nutrition Intervention Revisit per MD consult or patient Sign Off request:
--- NOTE | 2021-03-17 17:16 | Magnetic Resonance Report ---
MRI LUMBAR SPINE WITHOUT CONTRAST INDICATION / CLINICAL INFORMATION: Spinal stenosis, cord compression. TECHNIQUE: Multisequence, multiplanar images of the lumbar spine were obtained. COMPARISON: None available. Limitations: Patient motion artifact degrades image quality and is a limiting factor on this study. T his is most problematic on the axial sequences. FINDINGS: POSTOPERATIVE CHANGES:None ALIGNMENT: Mild dextroscoliosis is noted. No additional abnormalities of alignment are identified. VERTEBRAE:Reactive changes secondary to degenerative disc disease are observed at multiple vertebral body endplates. DISC MORPHOLOGY: Widespread disc desiccation is noted with relative sparing at the lumbosacral juncti on. VISUALIZED SPINAL CORD: Distal thoracic spinal cord, conus and nerve roots of the cauda equina all daly ve an unremarkable appearance. Conus terminates at about the level of superior endplate L1 [id number] ANALYSIS: L1-2: Advanced disc desiccation is noted. Anterior osteophyte formation is observed. Moderate left L1 nerve root neuroforaminal stenosis is observed along the concavity of the scoliotic curve. There is no indication of disc extrusion, central canal stenosis or right-sided neuroforaminal narrowing. L2-3: Advanced disc desiccation is noted. Anterior osteophyte formation is observed. Posterior disc o steophyte complex flattens the thecal sac slightly. There is mild left lateral recess stenosis and mi ld central canal stenosis at the L2-3 level. Moderate left L2 nerve root neuroforaminal narrowing is observed. Right L2 nerve root neuroforamina is adequately maintained. L3-4: Advanced disc desiccation is noted. Mild broad-based disc bulge is evident. Facet arthritic ifeanyi nges are observed bilaterally. Right lateral recess stenosis is observed. Mild central canal stenosis is evident. Loss of disc height and facet arthropathy contribute to severe bilateral foraminal steno sis at the L3 nerve root level. L4-5. L4-5: Advanced disc desiccation is noted. Broad-based disc bulge, facet arthropathy and thicken ing of ligamentum flavum contribute to severe central canal stenosis at the L4-5 level. Loss of disc height and facet arthropathy contribute to severe right-sided and moderate left-sided neuroforaminal stenosis at the L4 nerve root level. L5-S1: Disc height is fairly well-maintained. Bilateral facet arthritic changes are observed. Central spinal canal and L5 nerve root neuroforamina are adequate in size. PARASPINAL SOFT TISSUES: Evaluation of the paraspinous soft tissues reveals no definite abnormalities . IMPRESSION: 1. This study is limited by patient motion artifact which degrades image quality. This is most proble matic on the axial acquisitions. 2. Widespread lumbar spondylosis as described level by level above. 3. Severe central canal stenosis at L4-5. 4. Multifocal neuroforaminal stenosis. Signer Name: Walker Slater MD Signed: 03/17/2021 5:11 PM Workstation Name: [id number]
--- NOTE | 2021-03-17 17:31 | Magnetic Resonance Report ---
MRI CERVICAL SPINE WITHOUT CONTRAST INDICATION / CLINICAL INFORMATION: Cervical stenosis. TECHNIQUE: Multisequence, multiplanar images of the cervical spine were obtained. COMPARISON: CT cervical spine 03/16/2021 FINDINGS: POSTOPERATIVE CHANGES: Status post ACDF C5-6 and C6-7 levels where solid bone union is demonstrated a cross the postoperative intervertebral discs. CRANIOCERVICAL JUNCTION:There is increased soft tissue signal intensity dorsal to the odontoid proces s consistent with synovial hyperplasia versus thickening of the transversalis ligament. This decrease s the caliber of the spinal canal at the atlantoaxial junction. ALIGNMENT: Grade 1 spondylolisthesis is noted at the C3-4 level. Loss of the normal cervical lordosis is noted. No additional abnormalities of alignment are identified. VERTEBRAE:No suspicious areas of abnormal bone marrow signal intensity are identified. CERVICAL INTERVERTEBRAL DISCS: Advanced disc desiccation is present at the C4-5 and C7-T1 levels. VISUALIZED SPINAL CORD: No intrinsic cord lesions are identified. There is cord compression at the C3 -4 and C4-5 levels. [id number] ANALYSIS: C2-3: There is evidence of degenerative or developmental fusion across the facet joints and posterior margin of the intervertebral disc at the C2-3 level. Central spinal canal and neuroforamina are adeq uate in size. C3-4: Disc desiccation is noted. Bilateral facet arthropathy is observed, left worse than right. Grad e 1 spondylolisthesis, posterior disc osteophyte complex and ligamentous thickening resulting complet e effacement of CSF signal intensity from the thecal sac at this level. There is associated cord defo rmity and cord compression. In addition severe left-sided and moderate right-sided neuroforaminal oneyda nosis is evident. C4-5: Advanced disc desiccation is noted. Prominent anterior osteophyte formation is observed. Bilate ral facet and uncovertebral arthropathy are noted. Posterior disc osteophyte complex results in theca l sac deformity. There is severe central canal stenosis at this level with near complete effacement o f CSF signal intensity from the thecal sac. Severe bilateral foraminal stenosis is noted secondary to facet and uncovertebral arthritic change. C5-6: Status post post ACDF with solid bone union. Central spinal canal is adequate in size. Moderate bilateral foraminal stenosis is evident. C6-7: Status post ACDF with solid bone union. Posterior osteophyte lateralizes to the left contributi ng to left lateral recess stenosis. Facet and uncovertebral arthritic change contributes to severe le ft-sided and moderate right-sided foraminal stenosis at the C7 nerve root level. C7-T1: Advanced disc desiccation is noted. Bilateral facet arthropathies observed. Central spinal can al and neuroforamina remain adequate in size. PARASPINAL SOFT TISSUES: No significant abnormality. IMPRESSION: 1. Advanced degenerative changes at C3-4 and C4-5 levels are associated with severe central canal oneyda nosis with complete effacement of cerebrospinal fluid signal intensity from the thecal sac at both le vels. The degree of central canal stenosis on MRI is greater than expected based on CT cervical spine findings. 2. Status post ACDF C5-6 and C6-7 with solid bone union. Signer Name: Walker Slater MD Signed: 03/17/2021 5:27 PM Workstation Name: [id number]
--- NOTE | 2021-03-17 17:41 | Consultation ---
History of Present Illness Consult date: 03/17/21 Reason for Consult: Cervical stenosis Chief complaint: Multiple falls History of present illness: Shay Simmons is an 85 y/o M w/ advanced Alzheimer's dementia. He was brought to the ER by his last night after multiple falls earlier this week. The first fall occurred on Saturday when he tripped on a level surface. The second fall occurred a few days later as he fell while trying to walk down stairs. He has been noticeably more fatigue and exhausted. CT Cervical spine on arrival revealed stenosis at C3-4 and C4-5. NSGY was consulted for further evaluation. Presently, Mr. Simmons is resting comfortably. He denies pain or weakness in his extremities. His endorses a general loss of appetite and energy over the past several days. She denies any progressive urinary/bowel dysfunction. Past History Past Medical History: arthritis, other (Dementia) Past Surgical History: No surgical history Social history: lives with family Family history: no significant family history Medications and Allergies Allergies Allergy/AdvReac Type Severity Reaction Status Date / Time No Known Allergies Allergy Unverified 07/07/18 20:54 Home Medications Medication Instructions Recorded Confirmed Last Taken Type Memantine [Namenda] 10 mg PO BID 03/17/21 03/17/21 Unknown History Sertraline [Zoloft] 10 mg PO QDAY 03/17/21 03/17/21 Unknown History Active Meds: Active Medications Acetaminophen (Acetaminophen 325 Mg Tab) 650 mg PO Q4H PRN PRN Reason: Pain MILD(1-3)/Fever >100.5/KEARNEY Heparin Sodium (Porcine) (Heparin 5,000 Unit/1 Ml Vial) 5,000 unit SUB-Q Q8HR DON Last Admin: 03/17/21 14:40 Dose: 5,000 unit Documented by: Sodium Chloride (Nacl 0.9% 1000 Ml) 1,000 mls @ 125 mls/hr IV DIRECT DON Last Admin: 03/17/21 09:52 Dose: 125 mls/hr Documented by: Magnesium Hydroxide (Magnesium Hydroxide (Mom) Oral Liqd Udc) 30 ml PO Q4H PRN PRN Reason: Constipation Morphine Sulfate (Morphine 2 Mg/1 Ml Inj) 2 mg IV Q4H PRN PRN Reason: Pain, Moderate (4-6) Ondansetron HCl (Ondansetron 4 Mg/2 Ml Inj) 4 mg IV Q8H PRN PRN Reason: Nausea And Vomiting Sodium Chloride (Sodium Chloride 0.9% 10 Ml Flush Syringe) 10 ml IV BID DON Last Admin: 03/17/21 09:52 Dose: 10 ml Documented by: Sodium Chloride (Sodium Chloride 0.9% 10 Ml Flush Syringe) 10 ml IV PRN PRN PRN Reason: LINE FLUSH Review of Systems All systems: negative (what is indicated in the HPI) Physical Examination - Vital Signs Vital Signs: Vital Signs Temp Pulse Resp BP Pulse Ox 98.4 F 60 18 134/70 97 03/16/21 17:54 03/16/21 17:54 03/16/21 17:54 03/16/21 17:54 03/16/21 17:54 - Physical Exam Narrative exam: seen and examined no acute distress NC/AT RRR breathing non-labored abdomen soft no cyanosis or clubbing alert and awake CNII-XII intact MAEW without focal deficit sensation intact to light touch Hernandez's (-) b/l UE Results - Laboratory Findings CBC and BMP: 03/17/21 05:31 03/17/21 05:31 Abnormal Lab Findings: Abnormal Labs 03/16/21 03/16/21 03/17/21 18:39 18:39 05:31 Plt Count 125 L Monocytes % (Manual) 13.0 H 11.0 H Monocytes # (Manual) 1.3 H INR Sodium 130 L Chloride 95.2 L Creatinine 0.6 L Calcium Albumin 3.7 L 03/17/21 03/17/21 05:31 05:31 Plt Count Monocytes % (Manual) Monocytes # (Manual) INR 1.15 H Sodium 132 L Chloride Creatinine 0.5 L Calcium 7.9 L Albumin Assessment and Plan 85 y/o M w/ advanced Alzheimer's dementia w/ generalized fatigue in the context of multiple falls -symptoms may be partially related to developing cervical myelopathy, but could also represent progression of his overall condition and failure to thrive -unfortunately, he is not a surgical candidate for cervical decompression based on his age and co-morbidities -may wear a soft cervical collar for comfort -recommend PT/OT consultation -would recommend initiating goals of care discussion with his -please notify if questions
[2021-03-17] MEDS ORDERED: LORazepam 2 MG/ML VIAL IV ONE (22:47)
[2021-03-18] MEDS: HEPARIN 5,000 UNIT/1 ML VIAL SUB-Q SCH ×3 (05:19→22:14)
[2021-03-18] MEDS: SODIUM CHLORIDE 0.9% 1000 ML 1,000 ML IV SCH ×3 (05:19→22:14)
--- NOTE | 2021-03-18 11:10 | Progress Note ---
Assessment and Plan Assessment and plan: #Acute metabolic encephalopathy Patient baseline is unknown. Patient has a history of dementia No infection seen at this time. Could be as result of slight hyponatremia Continue to monitor #Hyponatremia Trend sodium #Weakness Vertebral imaging significant for Severe central canal stenosis widespread lumbar spondylosis, multifocal neuroforaminal stenosis Advanced degenerative changes at C3-C5 with severe central canal stenosis Per neurosurgeon, patient is a poor surgical candidate. Advised physical therapy #Bradycardia First-degree AV block on EKG Avoid beta-blockers Monitor heart rate TFTs reviewed #Dementia Continue memantine #Multiple falls Likely as a result of degenerative changes in the spine PT recommendations appreciated #DVT prophylaxis-Heparin Discharge planning-needs home health to be set up prior to discharge as per family caseworker. History Interval history: 85-year-old white male with known history of dementia and arthritis brought into the emergency room today accompanied by complaining of weakness, shortness of breath confusion and frequent falls today. Most of the history was given by the was by the bedside. Patient has had 2 falls in the last 2 weeks. According to , patient fell few days ago and hit the back of his head but there was no loss of consciousness and no lacerations except some bruises on the scalp. Patient has been having difficulty ambulating and standing from a sitting position because of the generalized weakness. states patient follows up in the [place] [facility] at the [facility] and has home health aides coming to their house. Patient is only alert and oriented x1 and unable to give any history. will rather continue to require help at home with patient's care and will not require any placement. There has been no history of sick contacts or recent travel. No history of contact with anyone with COVID-19. Work-up in the emergency room today reveals hyponatremia of 130. Patient being admitted for generalized weakness, fall and hyponatremia. Hospital course 03/17. Patient seen and examined at bedside this morning. Patient having breakfast. Has no complaints today. Alert and oriented in person only. Reviewed labs. Images also reviewed as well. Neurology consulted for spinal stenosis. MRI cervical, thoracic and lumbar ordered per neurology recomme ndation. Neck collar also ordered 03/18. Patient seen and examined at bedside this morning. No complaints. Has multiple canal stenosis on MRI performed yesterday. As per neurosurgeon, patient is a poor surgical candidate. Advised physical therapy. He has sinus bradycardia with 1st degree AV block. Avoid beta-blockers. Thyroid function panel ordered. Discharge planning Hospitalist Physical - Physical exam Narrative exam: VITAL SIGNS: Reviewed. GENERAL: Awake HEAD: No signs of head trauma. EYES: Pupils are equal. Extraocular motions intact. MOUTH: Oropharynx is normal. NECK: No adenopathy, no JVD. CHEST: Chest with diminished breath sounds bilaterally. No wheezes, rales, or rhonchi. CARDIAC: normal S1 and S2, without murmurs, gallops, or rubs. ABDOMEN: Soft, non tender and non distended. No rebound or guarding, and no masses palpated. Bowel Sounds normal. MUSCULOSKELETAL: No edema NEUROLOGIC EXAM: Alert oriented in person. Slight weakness of the left lower extremity. SKIN: No obvious lesions - Constitutional Vitals: Temp Pulse Resp BP Pulse Ox 98.6 F 56 L 18 143/89 100 03/18/21 07:59 03/18/21 08:22 03/18/21 08:22 03/18/21 07:59 03/18/21 07:59 HEART Score - HEART Score Troponin: Troponin T < 0.010 ng/mL (0.00-0.029) 03/17/21 00:20 Results - Labs CBC & Chem 7: 03/17/21 05:31 03/18/21 14:35 Labs: Laboratory Last Values WBC 7.5 K/mm3 (4.5-11.0) 03/17/21 05:31 RBC 4.14 M/mm3 (3.65-5.03) 03/17/21 05:31 Hgb 12.8 gm/dl (11.8-15.2) 03/17/21 05:31 Hct 37.7 % (35.5-45.6) 03/17/21 05:31 MCV 91 fl (84-94) 03/17/21 05:31 MCH 31 pg (28-32) 03/17/21 05:31 MCHC 34 % (32-34) 03/17/21 05:31 RDW 13.9 % (13.2-15.2) 03/17/21 05:31 Plt Count 125 K/mm3 (140-440) L 03/17/21 05:31 [place] % (Auto) Anesthesiology Physician Assistant 03/17/21 05:31 Add Manual Diff Complete 03/17/21 05:31 Total Counted 100 03/17/21 05:31 Seg Neuts % (Manual) 63.0 % (40.0-70.0) 03/17/21 05:31 Lymphocytes % (Manual) 25.0 % (13.4-35.0) 03/17/21 05:31 Monocytes % (Manual) 11.0 % (0.0-7.3) H 03/17/21 05:31 Eosinophils % (Manual) 1.0 % (0.0-4.3) 03/17/21 05:31 Nucleated RBC % Not Reportable 03/17/21 05:31 Seg Neutrophils # Man 4.7 K/mm3 (1.8-7.7) 03/17/21 05:31 Band Neutrophils # 0.0 K/mm3 03/17/21 05:31 Lymphocytes # (Manual) 1.9 K/mm3 (1.2-5.4) 03/17/21 05:31 Abs React Lymphs (Man) 0.0 K/mm3 03/17/21 05:31 Monocytes # (Manual) 0.8 K/mm3 (0.0-0.8) 03/17/21 05:31 Eosinophils # (Manual) 0.1 K/mm3 (0.0-0.4) 03/17/21 05:31 Basophils # (Manual) 0.0 K/mm3 (0.0-0.1) 03/17/21 05:31 Metamyelocytes # 0.0 K/mm3 03/17/21 05:31 Myelocytes # 0.0 K/mm3 03/17/21 05:31 Promyelocytes # 0.0 K/mm3 03/17/21 05:31 Blast Cells # 0.0 K/mm3 03/17/21 05:31 WBC Morphology Not Reportable 03/17/21 05:31 Hypersegmented Neuts Not Reportable 03/17/21 05:31 Hyposegmented Neuts Not Reportable 03/17/21 05:31 Hypogranular Neuts Not Reportable 03/17/21 05:31 Smudge Cells Not Reportable 03/17/21 05:31 Toxic Granulation Not Reportable 03/17/21 05:31 Toxic Vacuolation Not Reportable 03/17/21 05:31 Dohle Bodies Not Reportable 03/17/21 05:31 Pelger-Huet Anomaly Not Reportable 03/17/21 05:31 Christiana Rods Not Reportable 03/17/21 05:31 Platelet Estimate Consistent w auto 03/17/21 05:31 Clumped Platelets Not Reportable 03/17/21 05:31 Plt Clumps, EDTA Not Reportable 03/17/21 05:31 Large Platelets Not Reportable 03/17/21 05:31 Giant Platelets Not Reportable 03/17/21 05:31 Platelet Satelliting Not Reportable 03/17/21 05:31 Plt Morphology Comment Not Reportable 03/17/21 05:31 RBC Morphology Normal 03/17/21 05:31 Dimorphic RBCs Not Reportable 03/17/21 05:31 Polychromasia Not Reportable 03/17/21 05:31 Hypochromasia Not Reportable 03/17/21 05:31 Poikilocytosis Not Reportable 03/17/21 05:31 Anisocytosis Not Reportable 03/17/21 05:31 Microcytosis Not Reportable 03/17/21 05:31 Macrocytosis Not Reportable 03/17/21 05:31 Spherocytes Not Reportable 03/17/21 05:31 Pappenheimer Bodies Not Reportable 03/17/21 05:31 Sickle Cells Not Reportable 03/17/21 05:31 Target Cells Not Reportable 03/17/21 05:31 Tear Drop Cells Not Reportable 03/17/21 05:31 Ovalocytes Not Reportable 03/17/21 05:31 Helmet Cells Not Reportable 03/17/21 05:31 Goodwin-[place]aul[place] Bodies Not Reportable 03/17/21 05:31 [place] Rings Not Reportable 03/17/21 05:31 [place] Cells Not Reportable 03/17/21 05:31 Bite Cells Not Reportable 03/17/21 05:31 Crenated Cell Not Reportable 03/17/21 05:31 Elliptocytes Not Reportable 03/17/21 05:31 Acanthocytes (Spur) Not Reportable 03/17/21 05:31 Rouleaux Not Reportable 03/17/21 05:31 Hemoglobin C Crystals Not Reportable 03/17/21 05:31 Schistocytes Not Reportable 03/17/21 05:31 Malaria parasites Not Reportable 03/17/21 05:31 Burt Bodies Not Reportable 03/17/21 05:31 Hem Pathologist Commnt No 03/17/21 05:31 PT 14.6 Sec. (12.2-14.9) 03/17/21 05:31 INR 1.15 (0.87-1.13) H 03/17/21 05:31 Sodium 132 mmol/L (137-145) L 03/17/21 05:31 Potassium 3.9 mmol/L (3.6-5.0) 03/17/21 05:31 Chloride 98.4 mmol/L (98-107) 03/17/21 05:31 Carbon Dioxide 24 mmol/L (22-30) 03/17/21 05:31 Anion Gap 14 mmol/L 03/17/21 05:31 BUN 9 mg/dL (9-20) 03/17/21 05:31 Creatinine 0.5 mg/dL (0.8-1.3) L 03/17/21 05:31 Estimated GFR > 60 ml/min 03/17/21 05:31 BUN/Creatinine Ratio 18 % 03/17/21 05:31 Glucose 89 mg/dL (75-100) 03/17/21 05:31 Calcium 7.9 mg/dL (8.4-10.2) L 03/17/21 05:31 Total Bilirubin 0.70 mg/dL (0.1-1.2) 03/16/21 18:39 AST 19 units/L (5-40) 03/16/21 18:39 ALT 22 units/L (7-56) 03/16/21 18:39 Alkaline Phosphatase 81 units/L (35-129) 03/16/21 18:39 Troponin T < 0.010 ng/mL (0.00-0.029) 03/17/21 00:20 Total Protein 6.3 g/dL (6.3-8.2) 03/16/21 18:39 Albumin 3.7 g/dL (3.9-5) L 03/16/21 18:39 Albumin/Globulin Ratio 1.4 % 03/16/21 18:39 Urine Color Yellow (Yellow) 03/16/21 21:06 Urine Turbidity Clear (Clear) 03/16/21 21:06 Urine pH 6.0 (5.0-7.0) 03/16/21 21:06 Ur Specific [place] 1.014 (1.003-1.030) 03/16/21 21:06 Urine Protein <15 mg/dl mg/dL (Negative) 03/16/21 21:06 Urine Glucose (UA) Neg mg/dL (Negative) 03/16/21 21:06 Urine Ketones Neg mg/dL (Negative) 03/16/21 21:06 Urine Blood Neg (Negative) 03/16/21 21:06 Urine Nitrite Neg (Negative) 03/16/21 21:06 Urine Bilirubin Neg (Negative) 03/16/21 21:06 Urine Urobilinogen 2.0 mg/dL (<2.0) 03/16/21 21:06 Ur Leukocyte Esterase Neg (Negative) 03/16/21 21:06 Urine WBC (Auto) 5.0 /HPF (0.0-6.0) 03/16/21 21:06 Urine RBC (Auto) 1.0 /HPF (0.0-6.0) 03/16/21 21:06 U Epithel Cells (Auto) < 1.0 /HPF (0-13.0) 03/16/21 21:06 Taylor/IV: Voiding Method Condom Catheter Active Medications - Current Medications Current Medications: Generic Name Dose Route Start Last Admin Trade Name Freq PRN Reason Stop Dose Admin Acetaminophen 650 mg 03/16/21 22:39 Acetaminophen 325 Mg Tab PO Q4H PRN Pain MILD(1-3)/Fever >100.5/KEARNEY Heparin Sodium (Porcine) 5,000 unit 03/17/21 06:00 03/18/21 05:19 Heparin 5,000 Unit/1 Ml Vial SUB-Q 5,000 unit Q8HR DON Administration Sodium Chloride 1,000 mls @ 125 mls/hr 03/16/21 22:45 03/18/21 05:19 Nacl 0.9% 1000 Ml IV 125 mls/hr DIRECT DON Administration Magnesium Hydroxide 30 ml 03/16/21 22:39 Magnesium Hydroxide (Mom) Oral Liqd Udc PO Q4H PRN Constipation Morphine Sulfate 2 mg 03/16/21 22:39 Morphine 2 Mg/1 Ml Inj IV Q4H PRN Pain, Moderate (4-6) Ondansetron HCl 4 mg 03/16/21 22:39 Ondansetron 4 Mg/2 Ml Inj IV Q8H PRN Nausea And Vomiting Sodium Chloride 10 ml 03/17/21 10:00 03/17/21 21:15 Sodium Chloride 0.9% 10 Ml Flush Syringe IV 10 ml BID DON Administration Sodium Chloride 10 ml 03/16/21 22:39 Sodium Chloride 0.9% 10 Ml Flush Syringe IV PRN PRN LINE FLUSH Nutrition/Malnutrition Assess - Dietary Evaluation Nutrition/Malnutrition Findings: Nutrition Notes Start: 03/17/21 10:11 Freq: Status: Active Protocol: Document 03/17/21 10:11 NICOLA (Rec: 03/17/21 10:13 [email or web address] [id number]) Nutrition Notes Need for Assessment generated from: MD Order,Low BMI Initial or Follow up Brief Note Other Pertinent Diagnosis dementia, AMS, weakness, falls Current Diet Regular Subjective/Other Information MD order for diet education. Screen for low BMI. Pt is very confused and eating breakfast at time of visit. Pt ate about 75% of breakfast and stated he was not done eating. No signs of muscle or fast loss. Not appropriate for diet education. Nutrition Intervention Revisit per MD consult or patient Sign Off request:
[2021-03-18] MEDS: MEMANTINE 10 MG TAB PO SCH ×2 (13:53→22:14)
[2021-03-18] MEDS: SERTRALINE 25 MG TAB PO SCH (13:53)
[2021-03-18 15:49] LABS: BUN/Creatinine Ratio 13; Blood Urea Nitrogen 8 mg/dL (9-20); Calcium 7.6 mg/dL (8.4-10.2)
[2021-03-18 15:50] LABS: Alanine Aminotransferase 20 units/L (7-56); Albumin 3.1 g/dL (3.9-5)
[2021-03-19] MEDS ORDERED: LORazepam 2 MG/ML VIAL IV ONE (03:54)
[2021-03-19] MEDS: HEPARIN 5,000 UNIT/1 ML VIAL SUB-Q SCH ×3 (05:14→21:26)
[2021-03-19] MEDS: SODIUM CHLORIDE 0.9% 1000 ML 1,000 ML IV SCH (05:14)
[2021-03-19] MEDS: MEMANTINE 10 MG TAB PO SCH ×2 (10:20→21:26)
[2021-03-19] MEDS: SERTRALINE 25 MG TAB PO SCH (10:20)
--- NOTE | 2021-03-19 11:21 | Progress Note ---
Assessment and Plan Assessment and plan: #Acute metabolic encephalopathy Patient baseline is unknown. Patient has a history of dementia No infection seen at this time. Could be as result of slight hyponatremia Continue to monitor #Hyponatremia Trend sodium Salt tablets Stop IV fluids Repeat BMP in AM Would dc home if sodium is 135 and above. Discussed with patients daughter. #Weakness Vertebral imaging significant for Severe central canal stenosis widespread lumbar spondylosis, multifocal neuroforaminal stenosis Advanced degenerative changes at C3-C5 with severe central canal stenosis Per neurosurgeon, patient is a poor surgical candidate. Advised physical therapy #Bradycardia First-degree AV block on EKG Avoid beta-blockers Monitor heart rate TFTs reviewed #Dementia Continue memantine #Multiple falls Likely as a result of degenerative changes in the spine PT recommendations appreciated #DVT prophylaxis-Heparin Discharge planning- needs home health to be set up prior to discharge as per caser. sodium is 132. Discussed with patients daughter today. Patient will be discharged if sodium level improves tomorrow History Interval history: 85-year-old white male with known history of dementia and arthritis brought into the emergency room today accompanied by complaining of weakness, shortness of breath confusion and frequent falls today. Most of the history was given by the was by the bedside. Patient has had 2 falls in the last 2 weeks. According to , patient fell few days ago and hit the back of his head but there was no loss of consciousness and no lacerations except some bruises on the scalp. Patient has been having difficulty ambulating and standing from a sitting position because of the generalized weakness. states patient follows up in the [place] [facility] at the [facility] and has home health aides coming to their house. Patient is only alert and oriented x1 and unable to give any history. will rather continue to require help at home with patient's care and will not require any placement. There has been no history of sick contacts or recent travel. No history of contact with anyone with COVID-19. Work-up in the emergency room today reveals hyponatremia of 130. Patient being admitted for generalized weakness, fall and hyponatremia. Hospital course 03/17. Patient seen and examined at bedside this morning. Patient having breakfast. Has no complaints today. Alert and oriented in person only. Reviewed labs. Images also reviewed as well. Neurology consulted for spinal stenosis. MRI cervical, thoracic and lumbar ordered per neurology recommendation. Neck collar also ordered 03/18. Patient seen and examined at bedside this morning. No complaints. Has multiple canal stenosis on MRI performed yesterday. As per neurosurgeon, patient is a poor surgical candidate. Advised physical therapy. He has sinus bradycardia with 1st degree AV block. Avoid beta-blockers. Thyroid function panel ordered. Discharge planning 03/19. 03/19. Sodium 130 today. Started on salt tablets. Needs discharge planning-PT recommends home health but this will need to be set up prior to discharge. Possible discharge tomorrow if this is set up. Repeat sodium level in a.m. Hospitalist Physical - Physical exam Narrative exam: VITAL SIGNS: Reviewed. GENERAL: Awake HEAD: No signs of head trauma. EYES: Pupils are equal. Extraocular motions intact. MOUTH: Oropharynx is normal. NECK: No adenopathy, no JVD. CHEST: Chest with diminished breath sounds bilaterally. No wheezes, rales, or rhonchi. CARDIAC: normal S1 and S2, without murmurs, gallops, or rubs. ABDOMEN: Soft, non tender and non distended. No rebound or guarding, and no masses palpated. Bowel Sounds normal. MUSCULOSKELETAL: No edema NEUROLOGIC EXAM: Alert oriented in person. Slight weakness of the left lower extremity. SKIN: No obvious lesions - Constitutional Vitals: Temp Pulse Resp BP Pulse Ox 98.0 F 53 L 20 142/58 97 03/19/21 07:42 03/19/21 07:42 03/19/21 07:42 03/19/21 07:42 03/19/21 07:42 HEART Score - HEART Score Troponin: Troponin T < 0.010 ng/mL (0.00-0.029) 03/17/21 00:20 Results - Labs CBC & Chem 7: 03/17/21 05:31 03/19/21 12:23 Labs: Laboratory Last Values WBC 7.5 K/mm3 (4.5-11.0) 03/17/21 05:31 RBC 4.14 M/mm3 (3.65-5.03) 03/17/21 05:31 Hgb 12.8 gm/dl (11.8-15.2) 03/17/21 05:31 Hct 37.7 % (35.5-45.6) 03/17/21 05:31 MCV 91 fl (84-94) 03/17/21 05:31 MCH 31 pg (28-32) 03/17/21 05:31 MCHC 34 % (32-34) 03/17/21 05:31 RDW 13.9 % (13.2-15.2) 03/17/21 05:31 Plt Count 125 K/mm3 (140-440) L 03/17/21 05:31 [place] % (Auto) Business Controller 03/17/21 05:31 Add Manual Diff Complete 03/17/21 05:31 Total Counted 100 03/17/21 05:31 Seg Neuts % (Manual) 63.0 % (40.0-70.0) 03/17/21 05:31 Lymphocytes % (Manual) 25.0 % (13.4-35.0) 03/17/21 05:31 Monocytes % (Manual) 11.0 % (0.0-7.3) H 03/17/21 05:31 Eosinophils % (Manual) 1.0 % (0.0-4.3) 03/17/21 05:31 Nucleated RBC % Not Reportable 03/17/21 05:31 Seg Neutrophils # Man 4.7 K/mm3 (1.8-7.7) 03/17/21 05:31 Band Neutrophils # 0.0 K/mm3 03/17/21 05:31 Lymphocytes # (Manual) 1.9 K/mm3 (1.2-5.4) 03/17/21 05:31 Abs React Lymphs (Man) 0.0 K/mm3 03/17/21 05:31 Monocytes # (Manual) 0.8 K/mm3 (0.0-0.8) 03/17/21 05:31 Eosinophils # (Manual) 0.1 K/mm3 (0.0-0.4) 03/17/21 05:31 Basophils # (Manual) 0.0 K/mm3 (0.0-0.1) 03/17/21 05:31 Metamyelocytes # 0.0 K/mm3 03/17/21 05:31 Myelocytes # 0.0 K/mm3 03/17/21 05:31 Promyelocytes # 0.0 K/mm3 03/17/21 05:31 Blast Cells # 0.0 K/mm3 03/17/21 05:31 WBC Morphology Not Reportable 03/17/21 05:31 Hypersegmented Neuts Not Reportable 03/17/21 05:31 Hyposegmented Neuts Not Reportable 03/17/21 05:31 Hypogranular Neuts Not Reportable 03/17/21 05:31 Smudge Cells Not Reportable 03/17/21 05:31 Toxic Granulation Not Reportable 03/17/21 05:31 Toxic Vacuolation Not Reportable 03/17/21 05:31 Dohle Bodies Not Reportable 03/17/21 05:31 Pelger-Huet Anomaly Not Reportable 03/17/21 05:31 Christiana Rods Not Reportable 03/17/21 05:31 Platelet Estimate Consistent w auto 03/17/21 05:31 Clumped Platelets Not Reportable 03/17/21 05:31 Plt Clumps, EDTA Not Reportable 03/17/21 05:31 Large Platelets Not Reportable 03/17/21 05:31 Giant Platelets Not Reportable 03/17/21 05:31 Platelet Satelliting Not Reportable 03/17/21 05:31 Plt Morphology Comment Not Reportable 03/17/21 05:31 RBC Morphology Normal 03/17/21 05:31 Dimorphic RBCs Not Reportable 03/17/21 05:31 Polychromasia Not Reportable 03/17/21 05:31 Hypochromasia Not Reportable 03/17/21 05:31 Poikilocytosis Not Reportable 03/17/21 05:31 Anisocytosis Not Reportable 03/17/21 05:31 Microcytosis Not Reportable 03/17/21 05:31 Macrocytosis Not Reportable 03/17/21 05:31 Spherocytes Not Reportable 03/17/21 05:31 Pappenheimer Bodies Not Reportable 03/17/21 05:31 Sickle Cells Not Reportable 03/17/21 05:31 Target Cells Not Reportable 03/17/21 05:31 Tear Drop Cells Not Reportable 03/17/21 05:31 Ovalocytes Not Reportable 03/17/21 05:31 Helmet Cells Not Reportable 03/17/21 05:31 [place] Bodies Not Reportable 03/17/21 05:31 [place] Rings Not Reportable 03/17/21 05:31 [place] Cells Not Reportable 03/17/21 05:31 Bite Cells Not Reportable 03/17/21 05:31 Crenated Cell Not Reportable 03/17/21 05:31 Elliptocytes Not Reportable 03/17/21 05:31 Acanthocytes (Spur) Not Reportable 03/17/21 05:31 Rouleaux Not Reportable 03/17/21 05:31 Hemoglobin C Crystals Not Reportable 03/17/21 05:31 Schistocytes Not Reportable 03/17/21 05:31 Malaria parasites Not Reportable 03/17/21 05:31 Burt Bodies Not Reportable 03/17/21 05:31 Hem Pathologist Commnt No 03/17/21 05:31 PT 14.6 Sec. (12.2-14.9) 03/17/21 05:31 INR 1.15 (0.87-1.13) H 03/17/21 05:31 Sodium 130 mmol/L (137-145) L 03/18/21 14:35 Potassium 4.0 mmol/L (3.6-5.0) 03/18/21 14:35 Chloride 98.6 mmol/L (98-107) 03/18/21 14:35 Carbon Dioxide 22 mmol/L (22-30) 03/18/21 14:35 Anion Gap 13 mmol/L 03/18/21 14:35 BUN 8 mg/dL (9-20) L 03/18/21 14:35 Creatinine 0.6 mg/dL (0.8-1.3) L 03/18/21 14:35 Estimated GFR > 60 ml/min 03/18/21 14:35 BUN/Creatinine Ratio 13 % 03/18/21 14:35 Glucose 100 mg/dL (75-100) 03/18/21 14:35 Calcium 7.6 mg/dL (8.4-10.2) L 03/18/21 14:35 Total Bilirubin 0.80 mg/dL (0.1-1.2) 03/18/21 14:35 AST 23 units/L (5-40) 03/18/21 14:35 ALT 20 units/L (7-56) 03/18/21 14:35 Alkaline Phosphatase 69 units/L (35-129) 03/18/21 14:35 Troponin T < 0.010 ng/mL (0.00-0.029) 03/17/21 00:20 Total Protein 5.0 g/dL (6.3-8.2) L D 03/18/21 14:35 Albumin 3.1 g/dL (3.9-5) L 03/18/21 14:35 Albumin/Globulin Ratio 1.6 % 03/18/21 14:35 TSH 4.470 mlU/mL (0.270-4.200) H 03/18/21 14:35 Free T4 1.08 ng/dL (0.76-1.46) 03/18/21 14:35 Urine Color Yellow (Yellow) 03/16/21 21:06 Urine Turbidity Clear (Clear) 03/16/21 21:06 Urine pH 6.0 (5.0-7.0) 03/16/21 21:06 Ur Specific [place] 1.014 (1.003-1.030) 03/16/21 21:06 Urine Protein <15 mg/dl mg/dL (Negative) 03/16/21 21:06 Urine Glucose (UA) Neg mg/dL (Negative) 03/16/21 21:06 Urine Ketones Neg mg/dL (Negative) 03/16/21 21:06 Urine Blood Neg (Negative) 03/16/21 21:06 Urine Nitrite Neg (Negative) 03/16/21 21:06 Urine Bilirubin Neg (Negative) 03/16/21 21:06 Urine Urobilinogen 2.0 mg/dL (<2.0) 03/16/21 21:06 Ur Leukocyte Esterase Neg (Negative) 03/16/21 21:06 Urine WBC (Auto) 5.0 /HPF (0.0-6.0) 03/16/21 21:06 Urine RBC (Auto) 1.0 /HPF (0.0-6.0) 03/16/21 21:06 U Epithel Cells (Auto) < 1.0 /HPF (0-13.0) 03/16/21 21:06 Taylor/IV: Voiding Method Condom Catheter Active Medications - Current Medications Current Medications: Generic Name Dose Route Start Last Admin Trade Name Freq PRN Reason Stop Dose Admin Acetaminophen 650 mg 03/16/21 22:39 Acetaminophen 325 Mg Tab PO Q4H PRN Pain MILD(1-3)/Fever >100.5/KEARNEY Heparin Sodium (Porcine) 5,000 unit 03/17/21 06:00 03/19/21 05:14 Heparin 5,000 Unit/1 Ml Vial SUB-Q 5,000 unit Q8HR DON Administration Magnesium Hydroxide 30 ml 03/16/21 22:39 Magnesium Hydroxide (Mom) Oral Liqd Udc PO Q4H PRN Constipation Memantine 10 mg 03/18/21 14:00 03/19/21 10:20 Memantine 10 Mg Tab PO 10 mg BID DON Administration Morphine Sulfate 2 mg 03/16/21 22:39 Morphine 2 Mg/1 Ml Inj IV Q4H PRN Pain, Moderate (4-6) Ondansetron HCl 4 mg 03/16/21 22:39 Ondansetron 4 Mg/2 Ml Inj IV Q8H PRN Nausea And Vomiting Sertraline HCl 25 mg 03/18/21 14:00 03/19/21 10:20 Sertraline 25 Mg Tab PO 25 mg QDAY DON Administration Sodium Chloride 10 ml 03/17/21 10:00 03/19/21 10:20 Sodium Chloride 0.9% 10 Ml Flush Syringe IV 10 ml BID DON Administration Sodium Chloride 10 ml 03/16/21 22:39 Sodium Chloride 0.9% 10 Ml Flush Syringe IV PRN PRN LINE FLUSH Sodium Chloride 1 gm 03/19/21 14:00 Sodium Chloride 1 Gm Tab PO TID DON Nutrition/Malnutrition Assess - Dietary Evaluation Nutrition/Malnutrition Findings: Nutrition Notes Start: 03/17/21 10:11 Freq: Status: Active Protocol: Document 03/17/21 10:11 (Rec: 03/17/21 10:13 [id number]) Nutrition Notes Need for Assessment generated from: MD Order,Low BMI Initial or Follow up Brief Note Other Pertinent Diagnosis dementia, AMS, weakness, falls Current Diet Regular Subjective/Other Information MD order for diet education. Screen for low BMI. Pt is very confused and eating breakfast at time of visit. Pt ate about 75% of breakfast and stated he was not done eating. No signs of muscle or fast loss. Not appropriate for diet education. Nutrition Intervention Revisit per MD consult or patient Sign Off request:
[2021-03-19 13:35] LABS: Alanine Aminotransferase 29 units/L (7-56); Albumin 3.3 g/dL (3.9-5); Blood Urea Nitrogen 7 mg/dL (9-20); Calcium 8.1 mg/dL (8.4-10.2); Hemolysis Index 7
[2021-03-19 13:36] LABS: BUN/Creatinine Ratio 14
[2021-03-19] MEDS: SODIUM CHLORIDE 1 GM TAB PO SCH ×2 (14:12→20:54)
--- NOTE | 2021-03-19 17:21 | Discharge Summary ---
Providers - Providers Date of Admission: 03/17/21 16:30 Attending physician: WILLA TAYLOR 03/16/21 Consult to Case Management [CONS] Routine Services Needed at Discharge: Other Notified:: case briefer Comment:: Please Evaluate for Placement. 03/16/21 22:42 Consult to Dietitian/Nutrition [CONS] Routine Physician Instructions: Reason For Exam: Reason for Consult: Diet education 03/17/21 04:50 Physical Therapy Evaluation and Treat [CONS] Routine Comment: Reason For Exam: Generalized weakness, frequent falls 03/17/21 07:45 Consult to Physician [CONS] Routine Comment: Consulting Provider: DEACON COLLAZO II Physician Instructions: Reason For Exam: Lumbar and cervical compression fractures 03/17/21 10:16 Occupational Therapy Evaluate and Treat [CONS] Urgent Comment: Reason For Exam: Generalized weakness, frequent falls Hospitalization Condition: Critical Exam - Constitutional Vitals: Temp Pulse Resp BP Pulse Ox 98.0 F 58 L 18 140/58 95 03/19/21 16:18 03/19/21 16:18 03/19/21 16:18 03/19/21 16:18 03/19/21 16:18 Plan Follow up with: [facility] [Other] - 7 Days
[2021-03-20 06:09] LABS: Alanine Aminotransferase 39 units/L (7-56); Albumin 3.5 g/dL (3.9-5); Blood Urea Nitrogen 10 mg/dL (9-20); Calcium 8.2 mg/dL (8.4-10.2); Hemolysis Index 12
[2021-03-20 06:10] LABS: BUN/Creatinine Ratio 20
[2021-03-20] MEDS: HEPARIN 5,000 UNIT/1 ML VIAL SUB-Q SCH (06:41)
[2021-03-20 08:44] VITALS: BP 131/80
[2021-03-20] MEDS: SERTRALINE 25 MG TAB PO SCH (10:58)
[2021-03-20] MEDS: MEMANTINE 10 MG TAB PO SCH (10:58)
--- NOTE | 2021-03-20 11:39 | Discharge Summary ---
Providers - Providers Date of Admission: 03/17/21 16:30 Attending physician: CASE SPANN MD 03/16/21 Consult to Case Management [CONS] Routine Services Needed at Discharge: Other Notified:: rn case mgr Comment:: Please Evaluate for Placement. 03/16/21 22:42 Consult to Dietitian/Nutrition [CONS] Routine Physician Instructions: Reason For Exam: Reason for Consult: Diet education 03/17/21 04:50 Physical Therapy Evaluation and Treat [CONS] Routine Comment: Reason For Exam: Generalized weakness, frequent falls 03/17/21 07:45 Consult to Physician [CONS] Routine Comment: Consulting Provider: DEACON COLLAZO II Physician Instructions: Reason For Exam: Lumbar and cervical compression fractures 03/17/21 10:16 Occupational Therapy Evaluate and Treat [CONS] Urgent Comment: Reason For Exam: Generalized weakness, frequent falls Hospitalization Reason for admission: AMS Condition: Stable Hospital course: 85-year-old white male with known history of dementia and arthritis brought into the emergency room today accompanied by complaining of weakness, shortness of breath confusion and frequent falls today. Most of the history was given by the was by the bedside. Patient has had 2 falls in the last 2 weeks. According to , patient fell few days ago and hit the back of his head but there was no loss of consciousness and no lacerations except some bruises on the scalp. Patient has been having difficulty ambulating and standing from a sitting position because of the generalized weakness. states patient follows up in the [facility] and has home health aides coming to their house. Patient is only alert and oriented x1 and unable to give any history. will rather continue to require help at home with patient's care and will not require any placement. There has been no history of sick contacts or recent travel. No history of contact with anyone with COVID-19. Work-up in the emergency room today reveals hyponatremia of 130. Patient being admitted for generalized weakness, fall and hyponatremia. Hospital course 03/17. Patient seen and examined at bedside this morning. Patient having breakfast. Has no complaints today. Alert and oriented in person only. Reviewed labs. Images also reviewed as well. Neurology consulted for spinal stenosis. MRI cervical, thoracic and lumbar ordered per neurology recommendation. Neck collar also ordered 03/18. Patient seen and examined at bedside this morning. No complaints. Has multiple canal stenosis on MRI performed yesterday. As per neurosurgeon, patient is a poor surgical candidate. Advised physical therapy. He has sinus bradycardia with 1st degree AV block. Avoid beta-blockers. Thyroid function panel ordered. Discharge planning 03/19. 03/19. Sodium 130 today. Started on salt tablets. Needs discharge planning-PT recommends home health but this will need to be set up prior to discharge. Possible discharge tomorrow if this is set up. Repeat sodium level in a.m. 03/20: Patient clinically stable, appears to have underlying Dementia, PT documented patients activity level, will give 2 more days of SODIUM tabs have patient follow with urology outpatient. #Acute metabolic encephalopathy #Hyponatremia #Weakness Vertebral imaging significant for Severe central canal stenosis widespread lumbar spondylosis, multifocal neuroforaminal stenosis Advanced degenerative changes at C3-C5 with severe central canal stenosis Per neurosurgeon, patient is a poor surgical candidate. Advised physical therapy #Bradycardia First-degree AV block on EKG Avoid beta-blockers Monitor heart rate TFTs reviewed #Dementia Continue memantine #Multiple falls Likely as a result of degenerative changes in the spine PT recommendations appreciated Discharge planning- needs home health to be set up prior to discharge as per rn case mgr. sodium is 132. Disposition: [id number] HOME UNDER HOME TH Final Discharge Diagnosis (Prints w/discharge instructions): acute metabolic Encephalopathy Time spent for discharge: 35 mins Core Measure Documentation - Palliative Care Palliative Care/ Comfort Measures: Not Applicable - Core Measures Any of the following diagnoses?: none Exam - Physical Exam Narrative exam: VITAL SIGNS: Reviewed. GENERAL: Awake HEAD: No signs of head trauma. EYES: Pupils are equal. Extraocular motions intact. MOUTH: Oropharynx is normal. NECK: No adenopathy, no JVD. CHEST: Chest with diminished breath sounds bilaterally. No wheezes, rales, or rhonchi. CARDIAC: normal S1 and S2, without murmurs, gallops, or rubs. ABDOMEN: Soft, non tender and non distended. No rebound or guarding, and no masses palpated. Bowel Sounds normal. MUSCULOSKELETAL: No edema NEUROLOGIC EXAM: Alert oriented in person. Slight weakness of the left lower extremity. SKIN: No obvious lesions - Constitutional Vitals: Temp Pulse Resp BP Pulse Ox 98.2 F 52 L 18 131/80 98 03/20/21 07:16 03/20/21 09:14 03/20/21 07:16 03/20/21 07:16 03/20/21 07:16 Plan Activity: advance as tolerated, fall precautions Diet: low fat Special Instructions: record daily weights, record daily BP diary, physical therapy, occupational therapy, home health RN Follow up with: [facility] [Other] - 7 Days DEACON COLLAZO II, MD [Staff Physician] - 7 Days JEFFRY CASTANON MD [Staff Physician] - 7 Days NICOLE ANNE MD [Staff Physician] - 7 Days Prescriptions: Sodium Chloride 1 gm PO BID #6 tablet
== END 2021-03-20 14:37 | disposition home health service (06) | DRG 551 ==
LOC: ED 17:50 → 4A 22:16 → OBSVTOIN 03-17 16:30
PROVIDERS: ADMIT Internal Medicine Geriatric Medicine; ATTEND Internal Medicine
DX: M47.816 Spondylosis without myelopathy or radiculopathy, lumbar region (principal); G93.41 Metabolic encephalopathy; S32.000A Wedge compression fracture of unspecified lumbar vertebra, initial encounter for closed fracture; E87.1 Hypo-osmolality and hyponatremia; F03.90 Unspecified dementia, unspecified severity, without behavioral disturbance, psychotic disturbance, mood disturbance, and anxiety; M19.90 Unspecified osteoarthritis, unspecified site; M48.02 Spinal stenosis, cervical region; I44.0 Atrioventricular block, first degree; Z79.899 Other long term (current) drug therapy; W18.39XA Other fall on same level, initial encounter; Y93.89 Activity, other specified; Y92.89 Other specified places as the place of occurrence of the external cause; Y99.8 Other external cause status
CPT/HCPCS: 36415; 70450; 71045; 72100; 72125; 72141; 72148; 80048; 80053; 81001; 84439; 84443; 84484; 85007; 85025; 85610; 93005; 96374; G0378; J1644; J2060; J7030; J7050